=== PATIENT | male | born 1975 | race Two or more races ===

== ENCOUNTER 2024-06-25 01:33 | Emergency (ER) | payer OTHER ==
[~2024-06-25] VITALS: Ht 175.3 cm; Wt 72.6 kg
[2024-06-25 04:30] LABS: BASOPHILS % (AUTO) 0.5 % (0.0-2.0); EOSINOPHILS # (AUTO) 0.1 K/uL (0.0-0.7); HEMATOCRIT 36 % (39-51); HEMOGLOBIN 11.8 g/dL (13.5-17.5); LYMPHOCYTES % (AUTO) 27.3 % (20.0-44.0); MEAN CORPUSCULAR HEMOGLOBIN 30 PG (26.0-33.0); MEAN CORPUSCULAR HGB CONC 33 g/dl (31.0-36.0); MEAN CORPUSCULAR VOLUME 92 fL (80-96); MONOCYTES # (AUTO) 0.4 K/uL (0.1-1.30); MONOCYTES % (AUTO) 11.6 % (2.0-12.0); NEUTROPHILS % (AUTO) 58.6 % (43.0-81.0); PLATELET COUNT (AUTO) 102 K/uL (150-450); RED BLOOD CELL COUNT(AUTO) 3.94 MIL/uL (4.5-6.0); RED CELL DISTRIBUTION WIDTH 18.5 % (11.5-15.0); WHITE BLOOD COUNT (AUTO) 3.5 K/uL (4.3-11.0)
[2024-06-25 04:39] LABS: CALCIUM, SERUM 8.6 mg/dL (8.5-10.1); CREATININE 1.4 mg/dL (0.6-1.3); POTASSIUM 3.4 mmol/L (3.5-5.1)
[2024-06-25 04:53] LABS: ALBUMIN 3.2 g/dL (3.4-5.0); BILIRUBIN,TOTAL 1.7 mg/dL (0.2-1.0); TOTAL PROTEIN, SERUM 6.7 g/dL (6.4-8.2)
[2024-06-25] MEDS ORDERED: FUROSEMIDE 40 MG/4 ML VIAL ONE (05:19)
[2024-06-25] MEDS: FUROSEMIDE 40 MG/4 ML VIAL IV ONE (05:30)
[2024-06-25 06:23] VITALS: BP 151/118; TEMP 98; O2SAT 100
== END 2024-06-25 06:24 | disposition home or self-care (01) ==
LOC: ER 01:35
DX: I11.0 Hypertensive heart disease with heart failure (principal); I50.9 Heart failure, unspecified
CPT/HCPCS: 99285; 96374; 93005; 71045; 85025; 36415; 80053; 84484; 83880; J1938

== ENCOUNTER 2025-02-05 21:26 | Emergency (ER) | payer MEDICAID, OTHER ==
[~2025-02-05] VITALS: Ht 175.3 cm; Wt 74.8 kg
[2025-02-06 01:27] LABS: PLATELET COUNT (AUTO) 135 K/uL (150-450); RED BLOOD CELL COUNT(AUTO) 3.66 MIL/uL (4.5-6.0); RED CELL DISTRIBUTION WIDTH 19.1 % (11.5-15.0); WHITE BLOOD COUNT (AUTO) 4.5 K/uL (4.3-11.0)
[2025-02-06 01:39] LABS: CALCIUM, SERUM 7.7 mg/dL (8.5-10.1); CREATININE 1.9 mg/dL (0.6-1.3); SODIUM SERUM 142 mmol/L (136-145); UREA NITROGEN, BLOOD 56 mg/dL (7-18)
[2025-02-06 01:55] LABS: ASPARTATE AMINOTRANSFERASE 44 U/L (15-37); NT-PRO BNP 488 pg/mL (0-125); TOTAL PROTEIN, SERUM 6.9 g/dL (6.4-8.2)
[2025-02-06 02:02] LABS: EOSINOPHILS % (MANUAL) 3 % (0-4); LYMPHOCYTES % (MANUAL) 29 % (16-48); MONOCYTES % (MANUAL) 11 % (0-11.0); NEUTROPHILS % (MANUAL) 57 (42-76); PLATELET ESTIMATE ADEQUATE
[2025-02-06 03:34] VITALS: BP 120/80; TEMP 98.4; O2SAT 96
== END 2025-02-06 03:34 | disposition home or self-care (01) ==
LOC: ER 21:29
DX: I11.0 Hypertensive heart disease with heart failure (principal)
CPT/HCPCS: 36415; 71045-TC; 80048-TC; 80076-TC; 83880; 84484-TC; 85027-TC

== ENCOUNTER 2025-02-06 19:40 | Emergency (ER) | payer MEDICAID | END 2025-02-06 21:01 | disposition left against medical advice (07) | LOC: ER 19:40 | DX: M79.643 Pain in unspecified hand (principal); Z53.21 Procedure and treatment not carried out due to patient leaving prior to being seen by health care provider ==